=== PATIENT | female | born 1960 | race Two or more races ===

== ENCOUNTER → 2018-01-28 | Outpatient (CLI) | payer OTHER ==
[~2018-01-28] MED LIST: FUROSEMIDE 20 MG/2 ML ONE
== END ==
LOC: RAD 09:00
PROVIDERS: ATTEND Student in an Organized Health Care Education/Training Program
DX: N20.0 Calculus of kidney (principal); N26.1 Atrophy of kidney (terminal); R91.8 Other nonspecific abnormal finding of lung field
CPT/HCPCS: 74178; 78708; A9562; J1940

== ENCOUNTER 2018-06-10 08:47 | Day surgery (SDC) | payer OTHER ==
[~2018-06-10] VITALS: Ht 149.9 cm; Wt 45.5 kg
[2018-06-10 09:26] VITALS: BP 110/75
[2018-06-10] MEDS ORDERED: SODIUM CHLORIDE 0.9% 1,000 ML IV SCH (09:30)
[2018-06-10] MEDS ORDERED: LIDOCAINE-MPF 2%, 2ML ONE (09:51)
[2018-06-10] MEDS ORDERED: FENTANYL PF 100 MCG/2ML ONE (09:55)
[2018-06-10] MEDS ORDERED: MIDAZOLAM 1 MG/ML, 5ML ONE ×2 (09:55→09:56)
[2018-06-10] MEDS ORDERED: NALOXONE 1 MG/ML, 2ML ONE (09:56)
[2018-06-10] MEDS ORDERED: FLUMAZENIL 0.1 MG/1 ML, 5ML ONE (09:56)
== END 2018-06-10 13:45 | disposition home or self-care (01) ==
LOC: OUT 08:47
PROVIDERS: ATTEND Internal Medicine Critical Care Medicine
DX: J98.4 Other disorders of lung (principal)
CPT/HCPCS: 32405; 71045; 77012; 88305; 88341; 88342; 99156; 99157; J2250; J3010; J3490; G0461; J2310